=== PATIENT | male | born 1980 | race Caucasian/White ===

== ENCOUNTER 2016-10-14 20:18 | Emergency (ER) | payer BC ==
[~2016-10-14] VITALS: Ht 180.3 cm; Wt 86.2 kg
[2016-10-14 21:05] VITALS: BP 96/69
== END 2016-10-14 23:48 | disposition left against medical advice (07) ==
LOC: ER 20:18
DX: M79.605 Pain in left leg (principal); G89.29 Other chronic pain; Z53.21 Procedure and treatment not carried out due to patient leaving prior to being seen by health care provider
CPT/HCPCS: 73590